=== PATIENT | male | born 1995 | race Caucasian/White ===

== ENCOUNTER 2021-11-25 11:45 | Outpatient (CLI) | payer OTHER, SELFPAY ==
[2021-11-25 14:46] LABS: Chloride* 100 mmol/L (96-114)
[2021-11-25 14:47] LABS: Potassium* 4.3 mmol/L (3.6-5.1); Sodium* 139 mmol/L (135-149)
[2021-11-25 14:49] LABS: Carbon Dioxide* 30 mmol/L (20-32); Cholesterol* 176 mg/dL (90-199); Creatinine* 0.8 mg/dL (0.5-1.5); Estimated Glomerular Filt Rate 125 ml/min
[2021-11-25 14:50] LABS: Blood Urea Nitrogen* 17 mg/dL (5-24); Glucose* 98 mg/dL (60-115); HDL Cholesterol* 54 mg/dL (>=40); LDL Cholesterol Calculated 109 mg/dL (<100); Triglycerides* 63 mg/dL (40-149)
== END 2021-11-25 11:46 | disposition home or self-care (01) ==
PROVIDERS: PCP Family Medicine; Visit Provider Family Medicine
DX: Z00.00 Encounter for general adult medical examination without abnormal findings (principal); Z13.6 Encounter for screening for cardiovascular disorders
CPT/HCPCS: 80048; 80061

== ENCOUNTER 2022-09-05 19:48 | Outpatient (CLI) | payer BC, SELFPAY ==
--- NOTE | 2022-09-14 08:53 | W.PM.SLEEP ---
Sleep Study Details Details Interpreting Provider: Eduard Date of Sleep Study: 09/05/22 Sleep Study Details: STUDY TYPE:? Home unattended ? BMI:? 27.5 ORDERING PROVIDER:? Carmen INDICATION:? Concerns about sleep apnea ? SLEEP SUMMARY:? 425.5 minutes monitored RESPIRATORY SUMMARY:? AHI 37.2, supine 39, left lateral 20.6 Low oxygen 69 10.4% of study oxygen less than 90% Snoring 0.5% PERIODIC LIMB MOVEMENTS OF SLEEP:? Not recorded during home study CARDIAC:? Range 51-100, mean 67.1 IMPRESSION:? Severe obstructive sleep apnea with supine position dependency and significant desaturations. RECOMMENDATION: AutoSet CPAP pressure 4-17 is recommended treatment.
== END 2022-09-05 19:49 | disposition home or self-care (01) ==
LOC: SLEEP 19:48
PROVIDERS: PCP Family Medicine; Visit Provider Family Medicine
DX: G47.33 Obstructive sleep apnea (adult) (pediatric) (principal)
CPT/HCPCS: 95806

== ENCOUNTER 2023-11-28 08:14 | Outpatient (CLI) | payer BC, SELFPAY | END 2023-11-28 08:15 | disposition home or self-care (01) | LOC: NFLDREF 12-02 08:41 | PROVIDERS: PCP Family Medicine; Referring Provider Family Medicine; Visit Provider Family Medicine | DX: Z00.00 Encounter for general adult medical examination without abnormal findings (principal); Z13.1 Encounter for screening for diabetes mellitus; Z13.6 Encounter for screening for cardiovascular disorders | CPT/HCPCS: 80053; 80061 ==

== ENCOUNTER 2023-12-15 14:48 | Outpatient (CLI) | payer BC, SELFPAY | END 2023-12-15 14:49 | disposition home or self-care (01) | PROVIDERS: PCP Family Medicine; Visit Provider Family Medicine | DX: Z82.79 Family history of other congenital malformations, deformations and chromosomal abnormalities (principal); Z82.49 Family history of ischemic heart disease and other diseases of the circulatory system; G47.30 Sleep apnea, unspecified | CPT/HCPCS: 93306 ==